=== PATIENT | female | born 1995 | race Hispanic/Latino ===

== ENCOUNTER 2019-05-08 15:33 | Emergency (ER) | payer OTHER ==
[2019-05-08 18:12] LABS: Urine Blood 2+ (NEG); Urine Glucose NEGATIVE (NEG); Urine Protein NEGATIVE (NEG)
[2019-05-08] MEDS ORDERED: AZITHROMYCIN 250 MG TAB ONE (18:32)
[2019-05-08] MEDS ORDERED: FLUCONAZOLE 100 MG TAB ONE (18:32)
[2019-05-08] MEDS ORDERED: CEFTRIAXONE 250 MG/VIAL ONE (18:33)
[2019-05-08] MEDS ORDERED: WATER FOR INJ,STERILE 10 ML ONE (18:33)
--- NOTE | 2019-05-08 18:46 | ER ---
Nurse's Notes [facility] Name: Charlee Christianson Age: 23 yrs Sex: Female : 1995 Arrival Date: 05/08/2019 Time: 15:38 Bed 16 Private MD: Diagnosis: Acute vaginitis Presentation: 05/08 15:44 Presenting complaint: Patient states: 2 days ago she started having vaginal itching, aj1 now it feels swollen and it hurts when she sits, and she is having a "clumpy white" discharge. Transition of care: patient was not received from another setting of care. Onset of symptoms was 2018. Risk Assessment: Do you want to hurt yourself or someone else? Patient reports no desire to harm self or others. Initial Sepsis Screen: Does the patient meet any 2 criteria? No. Patient's initial sepsis screen is negative. Does the patient have a suspected source of infection? No. Patient's initial sepsis screen is negative. Care prior to arrival: None. 15:44 Method Of Arrival: [facility] 15:44 Acuity: GARRY 5 aj1 Triage Assessment: 15:46 General: Appears in no apparent distress. comfortable, Behavior is calm, cooperative, aj1 appropriate for age. Pain: Pain currently is 7 out of 10 on a pain scale. Neuro: Level of Consciousness is awake, alert, obeys commands. Cardiovascular: Patient's skin is warm and dry. Respiratory: Airway is patent Respiratory effort is even, unlabored, Respiratory pattern is regular, symmetrical. 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 - Social history:: Smoking status: Patient/guardian denies using tobacco. - Ebola Screening: : Patient denies travel to an Ebola-affected area in the 21 days before illness onset. Screenin:28 Abuse screen: Denies threats or abuse. Nutritional screening: No deficits noted. tw2 Tuberculosis screening: No symptoms or risk factors identified. Fall Risk None identified. Assessment: 15:50 General: Appears in no apparent distress. obese, Behavior is calm, cooperative, tw2 appropriate for age. Pain:. Neuro: Level of Consciousness is awake, alert, obeys commands, Oriented to person, place, time, situation. Cardiovascular: Heart tones S1 S2 Patient's skin is warm and dry. Respiratory: Airway is patent Respiratory effort is even, unlabored, Respiratory pattern is regular, symmetrical, Breath sounds are clear bilaterally. GI: No signs and/or symptoms were reported involving the gastrointestinal system. Abdomen is round obese, Bowel sounds present X 4 quads. : Reports vaginal itching, vaginal discharge, whitish in color. EENT: No signs and/or symptoms were reported regarding the EENT system. Derm: No signs and/or symptoms reported regarding the dermatologic system. Musculoskeletal: Range of motion: intact in all extremities. 16:45 Reassessment: Patient appears in no apparent distress at this time. No changes from tw2 previously documented assessment. Patient and/or family updated on plan of care and expected duration. Pain level reassessed. Patient is alert, oriented x 3, equal unlabored respirations, skin warm/dry/pink. 18:16 Reassessment: Patient appears in no apparent distress at this time. No changes from tw2 previously documented assessment. Patient and/or family updated on plan of care and expected duration. Pain level reassessed. Patient is alert, oriented x 3, equal unlabored respirations, skin warm/dry/pink. 19:11 Reassessment: Patient appears in no apparent distress at this time. No changes from tw2 previously documented assessment. Patient and/or family updated on plan of care and expected duration. Pain level reassessed. Patient is alert, oriented x 3, equal unlabored respirations, skin warm/dry/pink. Vital Signs: 15:46 Pulse 78; Resp 18; Temp 97.0; Pulse Ox 100% on R/A; Weight 100.24 kg (R); Height 5 ft. aj1 2 in. (157.48 cm) (R); Pain 7/10; 15:46 BP 133 / 93; aj1 17:10 BP 116 / 70; Pulse 64; Resp 17; Pulse Ox 99% on R/A; tw2 18:16 BP 99 / 87; Pulse 63; Resp 17; Pulse Ox 100% on R/A; tw2 15:46 Body Mass Index 40.42 (100.24 kg, 157.48 cm) aj1 ED Course: 15:38 Patient arrived in ED. mr 15:46 Triage completed. aj1 15:47 Arm band placed on Patient placed in an exam room. aj1 15:47 Placed in gown. Bed in low position. Call light in reach. tw2 15:51 Shay Iqbal PA is PHCP. [facility] 15:51 George Chaudhary MD is Attending Physician. [facility] 16:28 Mimi Coats, RN is Primary Nurse. tw2 16:28 Assist provider with pelvic exam: Set up pelvic tray. Performed by Shay DEY tw2 Specimens sent to lab. Patient tolerated well. 19:11 Patient did not have IV access during this emergency room visit. tw2 Administered Medications: 18:38 Drug: Rocephin (cefTRIAXone) 250 mg Route: IM; Site: right deltoid; tw2 19:11 Follow up: Response: No adverse reaction tw2 18:38 Drug: Zithromax 1 grams Route: PO; tw2 19:11 Follow up: Response: No adverse reaction tw2 18:38 Drug: DiFLUcan 150 mg Route: PO; tw2 19:11 Follow up: Response: No adverse reaction tw2 Outcome: 18:45 Discharge ordered by . [facility] 19:11 Discharged to home ambulatory, with friend. tw2 19:11 Condition: stable 19:11 Discharge instructions given to patient, friend, Instructed on discharge instructions, follow up and referral plans. Demonstrated understanding of instructions, follow-up care. 19:12 Patient left the ED. tw2 Signatures: Dot Bennett RN RN aj Shay Iqbal PA PA jmm Rivera, Mary mr Mimi Coats RN RN tw2
--- NOTE | 2019-05-08 18:46 | EDPHYS ---
Physician Documentation [facility] Name: Charlee Christianson Age: 23 yrs Sex: Female : 1995 Arrival Date: 05/08/2019 Time: 15:38 Bed 16 Private MD: ED Physician George Chaudhary HPI: 05/08 16:03 This 23 yrs old Female presents to ER via Ambulatory with complaints of jmm Vaginal Pain. 16:03 The patient presents with vaginal discharge. Onset: The symptoms/episode began/occurred jmm gradually, 2 day(s) ago. Modifying factors: The symptoms are alleviated by nothing, the symptoms are aggravated by nothing. Associated signs and symptoms: Pertinent negatives: fever. This is a 23 year old female with no chronic medical conditions that presents to the ED with complaints of vaginal irritation beginning 2 days ago. Patient states she has cottage cheese like discharge. . 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 - Social history:: Smoking status: Patient/guardian denies using tobacco. - Ebola Screening: : Patient denies travel to an Ebola-affected area in the 21 days before illness onset. ROS: 16:03 Constitutional: Negative for fever, chills, and weight loss, Cardiovascular: Negative jmm for chest pain, palpitations, and edema, Respiratory: Negative for shortness of breath, cough, wheezing, and pleuritic chest pain. 16:03 : Positive for vaginal discharge, vaginal itching. 16:03 All other systems are negative. Exam: 16:03 Constitutional: This is a well developed, well nourished patient who is awake, alert, jmm and in no acute distress. Head/Face: atraumatic. Eyes: EOMI, no conjunctival erythema appreciated ENT: Moist Mucus Membranes Neck: Trachea midline, Supple Chest/axilla: Normal chest wall appearance and motion. Cardiovascular: Regular rate and rhythm. No edema appreciated Respiratory: Normal respirations, no respiratory distress appreciated Abdomen/GI: Non distended, soft Back: Normal ROM 16:03 Skin: General appearance color normal MS/ Extremity: Moves all extremities, no obvious deformities appreciated, no edema noted to the lower extremities Neuro: Awake and alert, normal gait Psych: Behavior is normal, Mood is normal, Patient is cooperative and pleasant 16:03 : Pelvic Exam: External exam: is normal, Speculum exam: discharge, white, the nurse was present for the exam. Vital Signs: 15:46 Pulse 78; Resp 18; Temp 97.0; Pulse Ox 100% on R/A; Weight 100.24 kg (R); Height 5 ft. aj1 2 in. (157.48 cm) (R); Pain 7/10; 15:46 BP 133 / 93; aj1 17:10 BP 116 / 70; Pulse 64; Resp 17; Pulse Ox 99% on R/A; tw2 18:16 BP 99 / 87; Pulse 63; Resp 17; Pulse Ox 100% on R/A; tw2 15:46 Body Mass Index 40.42 (100.24 kg, 157.48 cm) aj1 MDM: 16:03 Patient medically screened. [facility] 18:44 Data reviewed: vital signs, nurses notes. Counseling: I had a detailed discussion with marcin the patient and/or guardian regarding: the historical points, exam findings, and any diagnostic results supporting the discharge/admit diagnosis, the need for outpatient follow up, to return to the emergency department if symptoms worsen or persist or if there are any questions or concerns that arise at home. ED course: Patient advised to follow up with retanner and otherwise given strict return precautions Patient understood and agrees with the plan of care. . 05/08 16:44 Order name: Urine Dipstick--Ancillary (enter results); Complete Time: 18:19 05/08 16:44 Order name: Urine --Ancillary (enter results); Complete Time: 18:19 05/08 16:50 Order name: GC (Suleman/Chl) Probe CX/URE [facility] 05/08 16:50 Order name: Wet Prep; Complete Time: 18:10 [facility] 05/08 16:28 Order name: Urine Dipstick-Ancillary (obtain specimen); Complete Time: 16:41 [facility] 05/08 16:34 Order name: Urine Test (obtain specimen); Complete Time: 16:41 tw2 Administered Medications: 18:38 Drug: Rocephin (cefTRIAXone) 250 mg Route: IM; Site: right deltoid; tw2 19:11 Follow up: Response: No adverse reaction tw2 18:38 Drug: Zithromax 1 grams Route: PO; tw2 19:11 Follow up: Response: No adverse reaction tw2 18:38 Drug: DiFLUcan 150 mg Route: PO; tw2 19:11 Follow up: Response: No adverse reaction tw2 Disposition: 05/08/19 18:45 Discharged to Home. Impression: Acute vaginitis. - Condition is Stable. - Discharge Instructions: Vaginitis. - Medication Reconciliation Form, Thank You Letter, Antibiotic Education, Prescription Opioid Use, Work release form, Family Work Release form. - Follow up: Private Physician; When: 2 - 3 days; Reason: Recheck today's complaints, Continuance of care, Re-evaluation by your physician. Addendum: 05/10/2019 13:16 Co-signature as Attending Physician, George Chaudhary MD I agree with the assessment and c oconnell plan of care. Signatures: Dispatcher [employer] EDDot Burciaga, RN RN aj1 George Chaudhary MD MD cha Mickail, Joel, PA PA [facility] Mimi Coats RN RN tw2 Corrections: (The following items were deleted from the chart) 05/08 18:08 16:28 GC (Gonorr/Clamydia) Probe+R.LAB.BRZ ordered. EDMS EDMS 18:09 16:28 Wet Prep+BA.LAB.BRZ ordered. EDIL EDMS 19:12 18:45 05/08/2019 18:45 Discharged to Home. Impression: Acute vaginitis. Condition is tw2 Stable. Forms are Work release form, Family Work Release, Medication Reconciliation Form, Thank You Letter, Antibiotic Education, Prescription Opioid Use. Follow up: Private Physician; When: 2 - 3 days; Reason: Recheck today's complaints, Continuance of care, Re-evaluation by your physician. marcin
[2019-05-08 22:00] VITALS: TEMP 97
[2019-05-08 22:04] VITALS: BP 99/87; O2SAT 100
--- OUTSIDE RECORDS SUMMARY | 2019-05-11 05:32 | XMS REPORT ---
:1995 [facility] Address [address] [place] [address] [address] [place] [address] Care Team Providers Name Role Phone DR DENIS BARBER Unavailable Unavailable Problems This patient has no known problems. Allergies, Adverse Reactions, Alerts This patient has no known allergies or adverse reactions. Medications This patient has no known medications. Encounters Start End Encounter Admission Attending Care Care Encounter Date/Time Date/Time Type Type Clinicians Facility Department ID 2018-01-20 2018-01-20 Outpatient PASHA TAYLOR [facility] [id number] 10:37:00 11:15:00 DENIS
[2019-05-13 04:56] LABS: C.trachomatis RNA,TMA Not Detected (Not Detected)
== END 2019-05-08 19:12 | disposition home or self-care (01) ==
LOC: ER 15:33
DX: N76.0 Acute vaginitis (principal)
CPT/HCPCS: 81003; 81025; 87210; 87490; 87590; 96372; 99283; J0696

== ENCOUNTER 2021-01-27 15:03 | Emergency (ER) | payer OTHER, BC ==
--- OUTSIDE RECORDS SUMMARY | 2021-01-27 15:06 | XMS REPORT | Continuity of Care Document ---
:1995 Author Organization [facility] t Address [address] [place] [address] Care Team Providers Name Role Phone DR ELISABETH Attending Clinician Unavailable DR ELISABETH Admitting Clinician Unavailable Problems This patient has no known problems. Allergies, Adverse Reactions, Alerts This patient has no known allergies or adverse reactions. Medications This patient has no known medications. Procedures This patient has no known procedures. Encounters Start End Encounter Admission Attending Care Care Encounter Source Date/Time Date/Time Type Type Clinicians Facility Department ID 2018-01-20 2018-01-20 Outpatient PASHA TAYLOR [facility] [id number] 10:37:00 11:15:00 [facility] Results This patient has no known results.
[2021-01-27 17:32] LABS: Urine Blood Trace-intact (Negative); Urine Glucose Negative (Negative); Urine Protein Negative (Negative); Urine Specific Gravity 1.025 (1.005-1.030)
[2021-01-27] MEDS ORDERED: IBUPROFEN 400 MG TAB ONE (17:48)
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
[2021-01-27 18:24] LABS: Urine Specific Gravity/Preg 1.025 (1.005-1.030)
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
[2021-01-27 19:21] VITALS: BP 126/99; TEMP 99.3; O2SAT 99
== END 2021-01-27 19:11 | disposition home or self-care (01) ==
LOC: ER 15:03
DX: S29.011A Strain of muscle and tendon of front wall of thorax, initial encounter (principal); S30.1XXA Contusion of abdominal wall, initial encounter; F17.210 Nicotine dependence, cigarettes, uncomplicated; V89.2XXA Person injured in unspecified motor-vehicle accident, traffic, initial encounter
CPT/HCPCS: 71250; 72125; 74176; 81003; 81025; 99283

== ENCOUNTER 2021-04-02 15:26 | Emergency (ER) | payer BC, OTHER ==
--- NOTE | 2021-04-02 16:33 | RAD REPORT ---
EXAM DESCRIPTION: CT - Head Brain Wo Cont - 04/02/2021 4:18 pm CLINICAL HISTORY: HEADACHE COMPARISON: No comparisons TECHNIQUE: All CT scans are performed using dose optimization technique as appropriate and may inclu de automated exposure control or mA/KV adjustment according to patient size. FINDINGS: No intracranial hemorrhage, hydrocephalus or extra-axial fluid collection.No areas of brai n edema or evidence of midline shift. The paranasal sinuses and mastoids are clear. The calvarium is intact. IMPRESSION: No acute intracranial abnormality.
--- NOTE | 2021-04-02 16:35 | ER ---
Nurse's Notes [facility] Name: Charlee Christianson Age: 25 yrs Sex: Female : 1995 Arrival Date: 04/02/2021 Time: 15:35 Bed 12 Private MD: Diagnosis: Headache Presentation: 04/02 15:41 Chief complaint: Patient states: Hit head last night "in same spot where I previously ch5 had concussion". Stood up into a dry door that had mooved. Coronavirus screen: Vaccine status: Patient reports receiving the 2nd dose of the covid vaccine. Ebola Screen: Patient negative for fever greater than or equal to 101.5 degrees Fahrenheit, and additional compatible Ebola Virus Disease symptoms Patient denies exposure to infectious person. Patient denies travel to an Ebola-affected area in the 21 days before illness onset. Mechanism of Injury:. Mechanism of Injury: resulted from standing and hitting a door. Initial Sepsis Screen: Does the patient meet any 2 criteria? No. Patient's initial sepsis screen is negative. Does the patient have a suspected source of infection? No. Patient's initial sepsis screen is negative. Risk Assessment: Do you want to hurt yourself or someone else? Patient reports no desire to harm self or others. 15:41 Method Of Arrival: Ambulatory [facility] 16:36 Acuity: GARRY 3 iw Triage Assessment: 15:46 General: Appears in no apparent distress. Behavior is cooperative. Pain: Complains of ch5 pain in left parietal area and right parietal area. Neuro: No deficits noted. - Immunization history:: Adult Immunizations Client reports receiving the 2nd dose of the Covid vaccine. - Social history:: Smoking status: Patient reports the use of cigarette tobacco products. Screenin:48 Abuse screen: Denies threats or abuse. Denies injuries from another. Nutritional 5 screening: No deficits noted. Tuberculosis screening: No symptoms or risk factors identified. Fall Risk None identified. Assessment: 15:48 Reassessment: No changes from previously documented assessment. [facility] Vital Signs: 15:41 BP 148 / 97; Pulse 76; Resp 18; Temp 97.6; Pulse Ox 100% ; Weight 113.4 kg; Height 5 5 ft. 2 in. (157.48 cm); Pain 6/10; 15:41 Body Mass Index 45.73 (113.40 kg, 157.48 cm) ch5 [place] Coma Score: 15:41 Eye Response: spontaneous(4). Verbal Response: oriented(5). Motor Response: obeys ch5 commands(6). Total: 15. 15:58 Eye Response: spontaneous(4). Verbal Response: oriented(5). Motor Response: obeys kb commands(6). Total: 15. 15:58 Eye Response: spontaneous(4). Verbal Response: oriented(5). Motor Response: obeys kb commands(6). Total: 15. ED Course: 15:35 Patient arrived in ED. am2 15:43 Suzan Corral [facility]-C [facility] kb 15:43 George Chaudhary MD is Attending Physician. kb 15:48 Austin Isidro, RN is Primary Nurse. 5 15:48 Call light in reach. ch5 15:48 No provider procedures requiring assistance completed. ch5 16:18 CT Head Brain wo Cont In Process Unspecified. EDUT 16:37 Triage completed. iw 16:47 Patient did not have IV access during this emergency room visit. ch5 Administered Medications: No medications were administered Outcome: 16:34 Discharge ordered by MD. kb 16:47 Discharged to home ambulatory. ch5 16:47 Condition: stable 16:47 Discharge instructions given to patient, Instructed on discharge instructions. 16:53 Patient left the ED. 5 Signatures: Dispatcher [employer] EDUT Suzan Corral FNP-C FNP-Ckb Williams, Irene, RN RN Nena Hartman [facility] Austin Isidro, SAMARA PASCUAL [facility]
--- NOTE | 2021-04-02 16:35 | EDPHYS ---
Physician Documentation [facility] Name: Charlee Christianson Age: 25 yrs Sex: Female : 1995 Arrival Date: 04/02/2021 Time: 15:35 Bed 12 Private MD: ED Physician George Chaudhary HPI: 04/02 15:58 This 25 yrs old Female presents to ER via Ambulatory with complaints of Head kb Injury-Adult, Nausea. 15:58 The patient or guardian reports pain, tenderness. The complaints affect the top of kb head. Context of injury: The problem was sustained at laundry mat, resulted from a direct blow, a solid object. Onset: The symptoms/episode began/occurred yesterday. Associated signs and symptoms: Loss of consciousness: This patient did not experience any loss of consciousness. Pertinent positives: headache. Severity of symptoms: At their worst the symptoms were moderate, in the emergency department the symptoms are unchanged. The patient has not experienced similar symptoms in the past. The patient has not recently seen a physician. Pt reports she was bent over under the washer at the laundry mat and the door started closing so when she stood up she hit the top of her head on the bottom of the door. - Immunization history:: Adult Immunizations Client reports receiving the 2nd dose of the Covid vaccine. - Social history:: Smoking status: Patient reports the use of cigarette tobacco products. ROS: 15:57 Constitutional: Negative for fever, chills, and weight loss. kb 15:57 Neuro: Positive for headache. 15:57 All other systems are negative. Exam: 15:57 Constitutional: This is a well developed, well nourished patient who is awake, alert, kb and in no acute distress. Head/Face: Normocephalic, atraumatic. Eyes: Pupils equal round and reactive to light, extra-ocular motions intact. Lids and lashes normal. Conjunctiva and sclera are non-icteric and not injected. Cornea within normal limits. Periorbital areas with no swelling, redness, or edema. ENT: Moist Mucous membranes Respiratory: Respirations even and unlabored. No increased work of breathing, no retractions or nasal flaring. Skin: Warm, dry with normal turgor. Normal color. MS/ Extremity: Pulses equal, no cyanosis. Neurovascular intact. Full, normal range of motion. Neuro: Awake and alert, GCS 15, oriented to person, place, time, and situation. Moves all extremities. Normal gait. Psych: Awake, alert, with orientation to person, place and time. Behavior, mood, and affect are within normal limits. Vital Signs: 15:41 BP 148 / 97; Pulse 76; Resp 18; Temp 97.6; Pulse Ox 100% ; Weight 113.4 kg; Height 5 ch5 ft. 2 in. (157.48 cm); Pain 6/10; 15:41 Body Mass Index 45.73 (113.40 kg, 157.48 cm) ch5 [place] Coma Score: 15:41 Eye Response: spontaneous(4). Verbal Response: oriented(5). Motor Response: obeys ch5 commands(6). Total: 15. 15:58 Eye Response: spontaneous(4). Verbal Response: oriented(5). Motor Response: obeys kb commands(6). Total: 15. 15:58 Eye Response: spontaneous(4). Verbal Response: oriented(5). Motor Response: obeys kb commands(6). Total: 15. MDM: 15:43 Patient medically screened. kb 15:58 Data reviewed: vital signs, nurses notes. Data interpreted: Pulse oximetry: on room air kb is 100 %. Interpretation: normal. 16:34 Counseling: I had a detailed discussion with the patient and/or guardian regarding: the kb historical points, exam findings, and any diagnostic results supporting the discharge/admit diagnosis, radiology results, the need for outpatient follow up, a family practitioner, to return to the emergency department if symptoms worsen or persist or if there are any questions or concerns that arise at home. 04/02 15:43 Order name: CT Head Brain wo Cont; Complete Time: 16:34 kb Administered Medications: No medications were administered Disposition: 04/03 06:39 Co-signature as Attending Physician, George Chaudhary MD I agree with the assessment and delvin plan of care. Disposition Summary: 04/02/21 16:34 Discharge Ordered Location: Home kb Condition: Stable kb Diagnosis - Headache kb Followup: kb - With: Emergency Department - When: As needed - Reason: Worsening of condition Followup: kb - With: Private Physician - When: 2 - 3 days - Reason: Recheck today's complaints, Continuance of care, Re-evaluation by your physician Discharge Instructions: - Discharge Summary Sheet kb - Head Injury, Adult, [id number] kb Forms: - Medication Reconciliation Form kb - Thank You Letter kb - Antibiotic Education kb - Prescription Opioid Use kb - Work release form ch5 Signatures: Dispatcher [employer] EDSuzan Medrano, PERLITA HALL-George Camacho MD MD cha Heath, Christopher, RN RN 5 Corrections: (The following items were deleted from the chart) 04/02 15:58 15:57 Constitutional: This is a well developed, well nourished patient who is awake, kb alert, and in no acute distress. Head/Face: Normocephalic, atraumatic. Eyes: Pupils equal round and reactive to light, extra-ocular motions intact. Lids and lashes normal. Conjunctiva and sclera are non-icteric and not injected. Cornea within normal limits. Periorbital areas with no swelling, redness, or edema. Respiratory: Respirations even and unlabored. No increased work of breathing, no retractions or nasal flaring. Skin: Warm, dry with normal turgor. Normal color. MS/ Extremity: Pulses equal, no cyanosis. Neurovascular intact. Full, normal range of motion. Neuro: Awake and alert, GCS 15, oriented to person, place, time, and situation. Moves all extremities. Normal gait. Psych: Awake, alert, with orientation to person, place and time. Behavior, mood, and affect are within normal limits. kb
[2021-04-02 17:01] VITALS: BP 148/97; TEMP 97.6; O2SAT 100
== END 2021-04-02 16:53 | disposition home or self-care (01) ==
LOC: ER 15:26
DX: R51.9 Headache, unspecified (principal); W22.8XXA Striking against or struck by other objects, initial encounter; Y93.89 Activity, other specified; Y92.89 Other specified places as the place of occurrence of the external cause
CPT/HCPCS: 70450; 99283

== ENCOUNTER 2021-08-23 10:24 | Emergency (ER) | payer BC, OTHER ==
--- OUTSIDE RECORDS SUMMARY | 2021-08-23 10:33 | XMS REPORT | Continuity of Care Document ---
:1995 Author Organization [facility] t Address [address] [place] [address] Care Team Providers Name Role Phone Vinod Sanchez MD Primary Care Physician AMINAH Attending Clinician Unavailable Only, Db Test Attending Clinician Unavailable Unknown Attending Clinician Unavailable Doctor Unassigned, Name Attending Clinician Unavailable MYKELSEYONLINE Attending Clinician Unavailable LAB90 Attending Clinician Unavailable Vinod Sanchez MD Attending Clinician DR ELISABETH Attending Clinician Unavailable DR ELISABETH Admitting Clinician Unavailable Payers Payer Name Policy Type Policy Number Effective Date Expiration Date [id number] 2021 00:00:00 OUT OF STATE [facility] 2 [id number] 2021 00:00:00 Problems Condition Condition Condition Status Onset Resolution Last Treating Co mments Source Name Details Category Date Date Treatment Clinician Date No known No known Disease Kelse y active active Seybold problems problems Allergies, Adverse Reactions, Alerts Allergy Allergy Status Severity Reaction(s) Onset Inactive Treating Comm ents Source Name Type Date Date Clinician NO KNOWN Drug Active [facility] Class [facility] Social History Social Habit Start Date Stop Date Quantity Comments Source Exposure to Yes [facility] SARS-CoV-2 (event) Medica l Branch Sex Assigned At [birth year] Reena Abebe ybold 00:00:00 00:00:00 Sex Assigned At [birth year] [facility] 00:00:00 00:00:00 Medical Branch Smoking Status Start Date Stop Date Source Unknown if ever smoked [facility] Never smoked tobacco Reena gomez Medications Ordered Filled Start Stop Current Ordering Indication Dosage Frequency Signature Comments Components Source Medication Medication Date Date Medication? Clinician (SIG) Name Name Testosteron Yes 2.3mg Inject 2.3 Reena e Cypionate 9-30 mg into Seybo ld (DEPO-TESTO 00:00: the muscle STERONE) 00 once a 200 MG/ML week intramuscul ar Solution Vital Signs Vital Name Observation Time Observation Value Comments Source Systolic blood pressure 2021-05-15 20:02:00 126 mm[Hg] Reena Seybold Diastolic blood 2021-05-15 20:02:00 84 mm[Hg] Kelse y Seybold pressure Heart rate 2021-05-15 20:02:00 76 /min Reena martinezbold Body temperature 2021-05-15 20:02:00 36.61 Marcia Rachael ey Seybold Respiratory rate 2021-05-15 20:02:00 14 /min Rachael ey Seybold Body height 2021-05-15 20:02:00 157.5 cm Reena martinezbodudley Body weight 2021-05-15 20:02:00 113.399 kg Reena S juanbold BMI 2021-05-15 20:02:00 45.73 kg/m2 Reena Gladys juanbodudley Procedures Procedure Date / Time Performed Performing Clinician [facility] ASSIGNMENT OF BENEFITS 2021-07-10 18:58:41 Doctor Unassigned, No [facility] Encounters Start End Encounter Admission Attending Care Care Encounter Source Date/Time Date/Time Type Type Clinicians Facility Department ID 2021-07-10 2021-07-10 Outpatient Rell BURR [facility] [id number] Univers 13:30:00 14:30:13 JOHN loyd [facility] 2021-07-10 2021-07-10 Laboratory Only, Ang Db Test [facility] 1.2.8 [id number] Univers 13:30:00 13:45:00 Only Unknown, Attending HEALTH [id number] ity of [place] [id number] Javier as BOUCHRA?BLEA [id number] Me annamarie JUAN [address] [place] [address] [facility] 2021-07-10 2021-07-10 Outpatient R [facility] [id number] Univers 13:30:00 13:30:00 [id number] ity of [facility] 2021-07-10 2021-07-10 Orders Doctor CLARK [id number] [place] [address] 00:00:00 00:00:00 Only Unassigned, JAZMYN [id number] ity of [place] [facility] [id number] Javier as [id number] [address] 2021-05-16 2021-05-16 Outpatient STEVIE CHAMBERS [id number] Reena 00:00:00 00:00:00 MD Savana NEWSOME 2021-05-15 2021-05-15 Outpatient LAB90 REENA CHAMBERS [id number] Reena 14:45:00 14:45:00 Savana [place]field 2021-05-15 2021-05-15 Office Rocael Sanchez [id number] Reena 13:43:44 14:13:44 Visit Vero Corral [id number] Se antonella Brock [id number] 2018-01-20 2018-01-20 Outpatient PASHA TAYLOR [facility] [id number] 10:37:00 11:15:00 [facility] Results This patient has no known results.
[2021-08-23 11:34] LABS: Absolute Lymphocytes (CBC) 1.1 K/uL (0.7-4.9); Hematocrit 45.4 % (36.0-45.0); MPV 7.5 fL (7.6-11.3)
[2021-08-23] MEDS ORDERED: NA CHLORIDE 0.9% 1,000 ML ONE (11:59)
[2021-08-23 12:05] LABS: ALT/SGPT 31 U/L (12-78); AST/SGOT 16 U/L (15-37); Albumin 3.3 g/dL (3.4-5.0); Alkaline Phosphatase 62 U/L (45-117); BUN Blood Urea Nitrogen 13 mg/dL (7-18); Bicarbonate 26 mmol/L (21-32); Bilirubin Total 0.4 mg/dL (0.2-1.0); Glucose Level 84 mg/dL (74-106); Lipase 150 U/L (73-393); Potassium 3.8 mmol/L (3.5-5.1); Protein, Total 7.4 g/dL (6.4-8.2); Sodium Level 139 mmol/L (136-145)
[2021-08-23 12:06] LABS: Bilirubin Direct < 0.1 mg/dL (0-0.2)
[2021-08-23 12:33] LABS: Urine Blood 1+ (Negative); Urine Glucose Negative (Negative); Urine Protein 1+ (Negative); Urine Specific Gravity >=1.030 (1.005-1.030); Urine pH 5.5 (5.0-7.0)
[2021-08-23 12:42] LABS: Urine Bacteria 20-50 /HPF (<20); Urine Mucus LIGHT /HPF (NONE SEEN); Urine RBC <5 /HPF (NONE SEEN)
[2021-08-23 13:09] LABS: SARS-COV-2 RT PCR NEGATIVE (NEGATIVE)
[2021-08-23 13:10] LABS: Urine Specific Gravity/Preg >1.030 (1.005-1.030)
--- NOTE | 2021-08-23 13:41 | EDPHYS ---
Physician Documentation [facility] Name: Charlee Christianson Age: 25 yrs Sex: Female : 1995 Arrival Date: 08/23/2021 Time: 10:27 Bed 10 Private MD: ED Physician Cecille Zamorano HPI: 08/23 16:49 This 25 yrs old Female presents to ER via Ambulatory with complaints of kb bodyaches, Fever, Constipation, tongue problem. 16:49 Pt reports fever, abd pain, bodyaches, malaise and nausea. States she developed a black kb tongue today so she was concerned. Pt has been taking pepto bismol. 16:50 The patient presents with abdominal pain that is diffuse. Onset: The symptoms/episode kb began/occurred 3 day(s) ago. The symptoms do not radiate. Associated signs and symptoms: Pertinent positives: fever, nausea. The symptoms are described as constant. Modifying factors: The symptoms are alleviated by nothing, the symptoms are aggravated by nothing. Severity of pain: At its worst the pain was mild in the emergency department the pain is unchanged. The patient has not experienced similar symptoms in the past. The patient has not recently seen a physician. 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 - Social history:: Smoking status: Patient reports the use of cigarette tobacco products, denies chronic smoking, but will smoke occasionally. ROS: 16:48 Respiratory: Negative for shortness of breath, cough, wheezing, and pleuritic chest kb pain. 16:48 Constitutional: Positive for body aches, fever, malaise. 16:48 Abdomen/GI: Positive for abdominal pain, nausea, Negative for vomiting, diarrhea. 16:48 All other systems are negative. Exam: 16:48 Constitutional: This is a well developed, well nourished patient who is awake, alert, kb and in no acute distress. Head/Face: Normocephalic, atraumatic. ENT: Moist Mucous membranes Cardiovascular: Regular rate and rhythm with a normal S1 and S2. No gallops, murmurs, or rubs. No pulse deficits. Respiratory: Respirations even and unlabored. No increased work of breathing. Talking in full sentences Abdomen/GI: Soft, non-tender. No distention Skin: Warm, dry with normal turgor. Normal color. MS/ Extremity: Pulses equal, no cyanosis. Neurovascular intact. Full, normal range of motion. Neuro: Awake and alert, GCS 15, oriented to person, place, time, and situation. Moves all extremities. Normal gait. Psych: Awake, alert, with orientation to person, place and time. Behavior, mood, and affect are within normal limits. Vital Signs: 10:32 BP 147 / 97; Pulse 103; Resp 18; Temp 98.4; Pulse Ox 99% ; Weight 113.4 kg; Height 5 ap3 ft. 3 in. (160.02 cm); Pain 6/10; 12:30 BP 143 / 95; Pulse 100; Resp 18; Pulse Ox 100% on R/A; Pain 0/10; ld1 10:32 Body Mass Index 44.29 (113.40 kg, 160.02 cm) ap3 MDM: 10:41 Patient medically screened. kb 13:40 Data reviewed: vital signs, nurses notes. Data interpreted: Pulse oximetry: on room air kb is 100 %. Interpretation: normal. Counseling: I had a detailed discussion with the patient and/or guardian regarding: the historical points, exam findings, and any diagnostic results supporting the discharge/admit diagnosis, lab results, the need for outpatient follow up, a family practitioner, to return to the emergency department if symptoms worsen or persist or if there are any questions or concerns that arise at home. 08/23 10:39 Order name: COVID-19/FLU A+B (Document "Date of Onset" if Symptomatic); Complete Time: ap3 13:21 08/23 11:05 Order name: Urine Microscopic Only kb 08/23 11:05 Order name: Strep kb 08/23 11:06 Order name: Basic Metabolic Panel; Complete Time: 12:07 kb 08/23 11:06 Order name: CBC with Diff; Complete Time: 11:42 kb 08/23 11:06 Order name: Hepatic Function; Complete Time: 12:07 kb 08/23 11:06 Order name: Lipase; Complete Time: 12:07 kb 08/23 11:06 Order name: Urine Microscopic Only; Complete Time: 12:43 EDMS 08/23 11:06 Order name: Group A Streptococcus Rapid Sc; Complete Time: 12:19 EDIL 08/23 12:20 Order name: Throat Culture EDIL 08/23 12:33 Order name: Urine Dipstick-Ancillary; Complete Time: 12:35 EDMS 08/23 12:43 Order name: Urine Culture EDIL 08/23 12:54 Order name: Urine --Ancillary (enter results); Complete Time: 13:21 bd 08/23 11:05 Order name: Urine Dipstick-Ancillary (obtain specimen); Complete Time: 12:33 kb 08/23 11:06 Order name: IV Saline Lock; Complete Time: 11:27 kb 08/23 11:06 Order name: Labs collected and sent; Complete Time: 11:27 kb Administered Medications: 11:58 Drug: NS 0.9% 1000 ml Route: IV; Rate: 1000 ml; Site: left antecubital; ld1 Disposition Summary: 08/23/21 13:40 Discharge Ordered Location: Home kb Condition: Stable kb Diagnosis - UTI/ Urinary tract infection, site not specified kb - Volume depletion, unspecified kb Followup: kb - With: Emergency Department - When: As needed - Reason: Worsening of condition Followup: kb - With: Private Physician - When: 2 - 3 days - Reason: Recheck today's complaints, Continuance of care, Re-evaluation by your physician Discharge Instructions: - Discharge Summary Sheet kb - Urinary Tract Infection, Adult, [id number] kb Forms: - Medication Reconciliation Form kb - Thank You Letter kb - Antibiotic Education kb - Prescription Opioid Use kb - Work release form ld1 Prescriptions: - Macrobid 100 mg Oral Capsule - take 1 capsule by ORAL route every 12 hours for 10 days; 20 capsule; Refills: kb 0, Product Selection Permitted Signatures: Dispatcher [employer] Suzan Hernandez FNP-C FNP-Ckb Prokisch, Amanda RN RN ap3 Tammie Troy RN RN ld1
--- NOTE | 2021-08-23 13:41 | ER ---
Nurse's Notes [facility] Name: Charlee Christianson Age: 25 yrs Sex: Female : 1995 Arrival Date: 08/23/2021 Time: 10:27 Bed 10 Private MD: Diagnosis: UTI/ Urinary tract infection, site not specified;Volume depletion, unspecified Presentation: 08/23 10:32 Chief complaint: Patient states: they began having body aches, fevers, abdominal pain ap3 on Saturday08/20/2021. Patient then reports noticing their tongue was "black" when brushing their teeth this morning. Patient also reports having fevers of 101 the last couple of days which responded well to medications. Coronavirus screen: chills, fatigue, fever, headache, muscle pain, nausea, Client presents with at least one sign or symptom that may indicate coronavirus-19. Standard/surgical mask placed on the client. Provider contacted for isolation considerations. Ebola Screen: No symptoms or risks identified at this time. Initial Sepsis Screen: Does the patient meet any 2 criteria? No. Patient's initial sepsis screen is negative. Does the patient have a suspected source of infection? No. Patient's initial sepsis screen is negative. Risk Assessment: Do you want to hurt yourself or someone else? Patient reports no desire to harm self or others. Onset of symptoms was August 19, 2021. 10:32 Method Of Arrival: Ambulatory ap3 10:32 Acuity: GARRY 4 ap3 Triage Assessment: 10:36 General: Appears in no apparent distress. Behavior is calm, cooperative, appropriate ap3 for age. Pain: Complains of pain in generalized body aches. Neuro: Level of Consciousness is awake, alert, obeys commands, Oriented to person, place, time, situation, Appropriate for age Moves all extremities. Gait is steady, Speech is normal. Cardiovascular: Patient's skin is warm and dry. Respiratory: Airway is patent Respiratory effort is even, unlabored. GI: Reports indigestion, nausea. 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 - Social history:: Smoking status: Patient reports the use of cigarette tobacco products, denies chronic smoking, but will smoke occasionally. Screenin:37 Abuse screen: Denies threats or abuse. Nutritional screening: No deficits noted. ap3 Tuberculosis screening: No symptoms or risk factors identified. 10:38 Fall Risk None identified. No fall in past 12 months (0 pts). ap3 Assessment: 10:38 GI: Bowel sounds present X 4 quads. Abd is soft and non tender. ap3 12:30 General: Appears in no apparent distress. comfortable, Behavior is calm, cooperative, ld1 appropriate for age. Pain: Denies pain. Neuro: Level of Consciousness is awake, alert, obeys commands, Oriented to person, place, time, situation, Appropriate for age. Cardiovascular: Capillary refill < 3 seconds Patient's skin is warm and dry. Respiratory: Airway is patent Respiratory effort is even, unlabored. GI: Abdomen is flat, non-distended. : No signs and/or symptoms were reported regarding the genitourinary system. EENT: No signs and/or symptoms were reported regarding the EENT system. Derm: Reports body aches. Musculoskeletal: No signs and/or symptoms reported regarding the musculoskeletal system. Vital Signs: 10:32 BP 147 / 97; Pulse 103; Resp 18; Temp 98.4; Pulse Ox 99% ; Weight 113.4 kg; Height 5 ap3 ft. 3 in. (160.02 cm); Pain 6/10; 12:30 BP 143 / 95; Pulse 100; Resp 18; Pulse Ox 100% on R/A; Pain 0/10; ld1 10:32 Body Mass Index 44.29 (113.40 kg, 160.02 cm) ap3 ED Course: 10:27 Patient arrived in ED. am2 10:31 [facility] Corral [facility]-C [facility] kb 10:31 Cecille Zamorano MD is Attending Physician. kb 10:35 Triage completed. ap3 10:37 Arm band placed on left wrist. ap3 10:38 Patient has correct armband on for positive identification. Call light in reach. Adult ap3 w/ patient. Pulse ox on. NIBP on. Door closed. Noise minimized. 11:27 Initial lab(s) drawn, by me, sent to lab. Strep swab sent to lab. Inserted saline lock: em1 20 gauge in left antecubital area, using aseptic technique. Blood collected. Missed attempt(s): 20 gauge in left forearm. Bleeding controlled, band aid applied, catheter tip intact. 11:55 Tammie Troy, RN is Primary Nurse. ld1 12:30 No provider procedures requiring assistance completed. ld1 12:33 Urine Microscopic Only Sent. ld1 12:33 Urine Microscopic Only Sent. ld1 12:33 COVID-19/FLU A+B (Document "Date of Onset" if Symptomatic) Sent. ld1 13:49 IV discontinued, intact, bleeding controlled, No redness/swelling at site. ld1 Administered Medications: 11:58 Drug: NS 0.9% 1000 ml Route: IV; Rate: 1000 ml; Site: left antecubital; ld1 Outcome: 13:40 Discharge ordered by MD. kb 13:49 Discharged to home ambulatory, with family. ld1 13:49 Condition: stable 13:49 Discharge instructions given to patient, Instructed on discharge instructions, follow up and referral plans. medication usage, Demonstrated understanding of instructions, follow-up care, medications, Prescriptions given X 1. 13:49 Patient left the ED. ld1 Signatures: Suzan Corral, ISABEL-C SCRAP YARD WORKER-Ivan Haro em1 Nena Hartman am2 Nena Head, RN RN ap3 Tammie Troy, RN RN ld1
[2021-08-23 15:16] VITALS: TEMP 98.4
[2021-08-23 15:18] VITALS: BP 143/95; O2SAT 100
== END 2021-08-23 13:49 | disposition home or self-care (01) ==
LOC: ER 10:24
DX: N39.0 Urinary tract infection, site not specified (principal); E86.9 Volume depletion, unspecified; F17.210 Nicotine dependence, cigarettes, uncomplicated; Z20.822 Contact with and (suspected) exposure to COVID-19
CPT/HCPCS: 87070; 87088; 85025; 87086; 80048; 36415; 81025; 80076; 87081; 83690; 0240U; 99284; J7030; 81003; 81015

== ENCOUNTER 2022-03-19 15:03 | Emergency (ER) | payer BC, OTHER ==
--- OUTSIDE RECORDS SUMMARY | 2022-03-19 15:06 | XMS REPORT | Continuity of Care Document ---
:1995 Author Organization [facility] t Address [address] [place] [address] Care Team Providers Name Role Phone PCP, PATIENT DOES NOT HAVE A Primary Care Physician Unavaila JOHN Klein Attending Clinician Unavailable Only, Ang Db Test Attending Clinician Unavailable Unknown, Attending Attending Clinician Unavailable Doctor Unassigned, [place] Attending Clinician Unavailable MD CANDIE Attending Clinician Unavailable LAB90 Attending Clinician Unavailable Daniel LOPES, Vero Brock Attending Clinician [phone] DENIS BARBER Attending Clinician Unavailable DR DENIS BARBER Admitting Clinician Unavailable Payers Payer Name Policy Type Policy Number Effective Date Expiration Date S [facility] - [id number] 2021 00:00:00 OUT OF STATE [facility] 2 [id number] 2021 00:00:00 Problems Condition Condition Condition Status Onset Resolution Last Treating Co mments Source Name Details Category Date Date Treatment Clinician Date No known No known Disease Kelse y active active Seybold problems problems Allergies, Adverse Reactions, Alerts Allergy Allergy Status Severity Reaction(s) Onset Inactive Treating Comm ents Source Name Type Date Date Clinician NO KNOWN Drug Active Univers ALLERGIE Class ity [facility] Social History Social Habit Start Date Stop Date Quantity Comments Source Exposure to Yes [facility] SARS-CoV-2 (event) Medica l Branch Sex Assigned At [birth year] [facility] 00:00:00 00:00:00 [facility] Smoking Status Start Date Stop Date Source Unknown if ever smoked [facility] Never smoked tobacco Reena Gallagher old Medications Ordered Filled Start Stop Current Ordering Indication Dosage Frequency Signature Comments Components Source Medication Medication Date Date Medication? Clinician (SIG) Name Name Trinidad Yes 2.3mg Inject 2.3 Reena e Cypionate 9-30 mg into Seybo ld (DEPO-TESTO 00:00: the muscle STERONE) 00 once a 200 MG/ML week intramuscul ar Solution Vital Signs Vital Name Observation Time Observation Value Comments Source Systolic blood pressure 2021-05-15 20:02:00 126 mm[Hg] Reena Seybold Diastolic blood 2021-05-15 20:02:00 84 mm[Hg] Kel y Seybold pressure Heart rate 2021-05-15 20:02:00 76 /min Reena martinezbold Body temperature 2021-05-15 20:02:00 36.61 Marcia Rachael ey Seybold Respiratory rate 2021-05-15 20:02:00 14 /min Rachael ey Seybold Body height 2021-05-15 20:02:00 157.5 cm Reena martinezbold Body weight 2021-05-15 20:02:00 113.399 kg Reena martinezbold BMI 2021-05-15 20:02:00 45.73 kg/m2 Reena martinezbodudley Procedures Procedure Date / Time Performed Performing Clinician [facility] e ASSIGNMENT OF BENEFITS 2021-07-10 18:58:41 Doctor Unassigned, No [facility] Encounters Start End Encounter Admission Attending Care Care Encounter Source Date/Time Date/Time Type Type Clinicians Facility Department ID 2021-07-10 2021-07-10 Outpatient R AMINAH [facility] [id number] Univers 13:30:00 14:30:13 JOHN loyd [facility] 2021-07-10 2021-07-10 Laboratory Only, Ang Db Test [facility] 1.2.8 [id number] Univers 13:30:00 13:45:00 Only Unknown, Attending HEALTH [id number] itmicaela [facility] [id number] Javier as BOUCHRA?BLEA [phone] Me annamarie GODFREY [address] [place] [address] MEDICAL OFFICE BUILDING 2021-07-10 2021-07-10 Outpatient R [facility] [id number] Univers 13:30:00 13:30:00 [id number] ity of [facility] 2021-07-10 2021-07-10 Orders Doctor AMBER [id number] Univers 00:00:00 00:00:00 Only Unassigned, JAZMYN [id number] ity of [facility] [id number] Javier as [id number] [address] 2021-05-16 2021-05-16 Outpatient STEVIE CHAMBERS [id number] Reena 00:00:00 00:00:00 MD Savana ENWSOME 2021-05-15 2021-05-15 Outpatient LAB90 REENA CHAMBERS [id number] Reena 14:45:00 14:45:00 Savana [place] 2021-05-15 2021-05-15 Office Rocael Sanchez [id number] Reena 13:43:44 14:13:44 Visit Vero Corral [id number] Se antonella Brock [id number] 2018-01-20 2018-01-20 Outpatient PASHA TAYLOR [facility] [id number] 10:37:00 [facility] Results This patient has no known results.
[2022-03-19 15:53] LABS: Urine Blood Trace-intact (Negative); Urine Glucose Negative (Negative); Urine Protein Negative (Negative); Urine Specific Gravity 1.025 (1.005-1.030)
--- NOTE | 2022-03-19 16:08 | EDPHYS ---
Physician Documentation [facility] Name: Charlee Christiansno Age: 26 yrs Sex: Female : 1995 Arrival Date: 03/19/2022 Time: 15:09 Bed Treatment Private MD: ED Physician Deanna Lambert HPI: 03/19 23:03 This 26 yrs old Female presents to ER via Ambulatory with complaints of Groin kb Pain, Discharge. 23:03 The patient presents with Noticed white discharge to vaginal area today. Onset: The kb symptoms/episode began/occurred today. Modifying factors: The symptoms are alleviated by nothing, the symptoms are aggravated by nothing. Associated signs and symptoms: The patient has no apparent associated signs or symptoms. Severity of symptoms: At their worst the symptoms were very mild, in the emergency department the symptoms are unchanged. The patient has not experienced similar symptoms in the past. The patient has not recently seen a physician. 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 - Social history:: Smoking status: Patient reports the use of cigarette tobacco products. ROS: 23:01 Constitutional: Negative for fever, chills, and weight loss. kb 23:01 : Positive for white discharge to genital area. 23:01 All other systems are negative. Exam: 23:01 Constitutional: This is a well developed, well nourished patient who is awake, alert, kb and in no acute distress. Head/Face: Normocephalic, atraumatic. ENT: Moist Mucous membranes Respiratory: Respirations even and unlabored. No increased work of breathing. Talking in full sentences Abdomen/GI: Soft, non-tender. No distention Skin: Warm, dry with normal turgor. Normal color. MS/ Extremity: Pulses equal, no cyanosis. Neurovascular intact. Full, normal range of motion. Neuro: Awake and alert, GCS 15, oriented to person, place, time, and situation. Moves all extremities. Normal gait. Psych: Awake, alert, with orientation to person, place and time. Behavior, mood, and affect are within normal limits. 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 Vital Signs: 15:21 BP 155 / 93; Pulse 78; Resp 18; Temp 98.2; Pulse Ox 100% on R/A; Weight 127.01 kg; ph Height 5 ft. 2 in. (157.48 cm); 15:21 Body Mass Index 51.21 (127.01 kg, 157.48 cm) ph MDM: 15:24 Patient medically screened. kb 23:03 Data reviewed: vital signs, nurses notes. Data interpreted: Pulse oximetry: on room air kb is 100 %. Interpretation: normal. Counseling: I had a detailed discussion with the patient and/or guardian regarding: the historical points, exam findings, and any diagnostic results supporting the discharge/admit diagnosis, radiology results, the need for outpatient follow up, an OB/Gyne specialist, to return to the emergency department if symptoms worsen or persist or if there are any questions or concerns that arise at home. 03/19 15:53 Order name: Urine Microscopic Only; Complete Time: 16:24 kb 03/19 15:53 Order name: Urine Dipstick-Ancillary; Complete Time: 16:07 EDMS 03/19 15:52 Order name: Urine Dipstick-Ancillary (obtain specimen); Complete Time: 16:00 kb 03/19 15:56 Order name: Urine --Ancillary (enter results); Complete Time: 16:24 bd Administered Medications: 16:36 Drug: DiFLUcan (fluconazole) 150 mg Route: PO; ap3 16:36 Follow up: Response: No adverse reaction ap3 Disposition: 03/20 07:33 STAFF ATTESTATION STATEMENT: I was immediately available onsite in the emergency sd2 department for consultation in the care of this patient. I did not see or examine this patient. Deanna Lambert MD. Disposition Summary: 03/19/22 16:07 Discharge Ordered Location: Home kb Condition: Stable kb Diagnosis - Candidiasis of vulva and vagina kb Followup: kb - With: Emergency Department - When: As needed - Reason: Worsening of condition Followup: kb - With: Private Physician - When: 2 - 3 days - Reason: Recheck today's complaints, Continuance of care, Re-evaluation by your physician Discharge Instructions: - Discharge Summary Sheet kb - Vaginal Yeast Infection, Adult kb Forms: - Medication Reconciliation Form kb - Thank You Letter kb - Antibiotic Education kb - Prescription Opioid Use kb Prescriptions: - Diflucan 150 mg Oral Tablet - take 1 tablet by ORAL route one time for 1 day; 1 tablet; Refills: 0, Product kb Selection Permitted Signatures: Dispatcher [employer] EDSuzan Medrano, Angela Saenz RN RN Nena Head RN RN ap3 Dunlop, Stephanie, MD MD sd2
--- NOTE | 2022-03-19 16:08 | ER ---
Nurse's Notes [facility] Name: Charlee Christianson Age: 26 yrs Sex: Female : 1995 Arrival Date: 03/19/2022 Time: 15:09 Bed Treatment Private MD: Diagnosis: Candidiasis of vulva and vagina Presentation: 03/19 15:21 Chief complaint: Patient states: " I am transitioning from female to male and taking ph testosterone My "privates" are starting to grow and I noticed today that there was some white stuff around it and it was painful." Denies fever or abdominal pain. Coronavirus screen: Vaccine status: Patient reports receiving the 2nd dose of the covid vaccine. Ebola Screen: No symptoms or risks identified at this time. Initial Sepsis Screen: Does the patient meet any 2 criteria? No. Patient's initial sepsis screen is negative. Does the patient have a suspected source of infection? No. Patient's initial sepsis screen is negative. Risk Assessment: Do you want to hurt yourself or someone else? Patient reports no desire to harm self or others. Onset of symptoms was March 19, 2022. 15:21 Method Of Arrival: Ambulatory ph 15:21 Acuity: GARRY 3 ph 15:21 Acuity: GARRY 4 ph Triage Assessment: 16:10 General: Appears in no apparent distress. Behavior is calm, cooperative, appropriate ph for age. Pain: Complains of pain in pelvis. Neuro: Level of Consciousness is awake, alert, obeys commands, Oriented to person, place, time, situation. Respiratory: Airway is patent Respiratory effort is even, unlabored. Derm: Skin is intact, is healthy with good turgor, Skin is pink, warm \\T\\ dry. Musculoskeletal: Circulation, motion, and sensation intact. Range of motion: intact in all extremities. 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 - Social history:: Smoking status: Patient reports the use of cigarette tobacco products. Screenin:09 Abuse screen: Denies threats or abuse. Denies injuries from another. Nutritional ph screening: No deficits noted. Tuberculosis screening: No symptoms or risk factors identified. Fall Risk None identified. Assessment: 16:11 General: SEE TRIAGE ASSESSMENT. ph Vital Signs: 15:21 BP 155 / 93; Pulse 78; Resp 18; Temp 98.2; Pulse Ox 100% on R/A; Weight 127.01 kg; ph Height 5 ft. 2 in. (157.48 cm); 15:21 Body Mass Index 51.21 (127.01 kg, 157.48 cm) ph ED Course: 15:09 Patient arrived in ED. rg4 15:24 Suzan Corral [facility]-C [facility] kb 15:24 Deanna Lambert MD is Attending Physician. kb 15:30 Triage completed. ph 15:30 Arm band placed on Patient placed in waiting room, Patient notified of wait time. ph 16:09 Angela Melton, RN is Primary Nurse. ph 16:09 Patient has correct armband on for positive identification. Placed in gown. Bed in low ph position. Call light in reach. Pulse ox on. NIBP on. 16:36 No provider procedures requiring assistance completed. Patient did not have IV access ap3 during this emergency room visit. Administered Medications: 16:36 Drug: DiFLUcan (fluconazole) 150 mg Route: PO; ap3 16:36 Follow up: Response: No adverse reaction ap3 Medication: 16:10 VIS not applicable for this client. ph Outcome: 16:07 Discharge ordered by . kb 16:36 Discharged to home ambulatory, with friend. ap3 16:36 Condition: good 16:36 Discharge instructions given to patient, friend, Instructed on discharge instructions, follow up and referral plans. medication usage, Demonstrated understanding of instructions, follow-up care, medications, Prescriptions given X 1. 16:36 Patient left the ED. ap3 Signatures: Suzan Corral FNP-C FNP-Ckb Hall, Patricia, RN RN Mariah Bentley rg4 Nena Head RN RN ap3
[2022-03-19 16:12] LABS: Urine Mucus Slight /HPF (None Seen); Urine RBC <5 /HPF (None Seen)
[2022-03-19 16:23] LABS: Urine Specific Gravity/Preg 1.025 (1.005-1.030)
[2022-03-19] MEDS ORDERED: FLUCONAZOLE 100 MG TAB ONE (16:35)
[2022-03-20 20:57] VITALS: BP 155/93; TEMP 98.2; O2SAT 100
== END 2022-03-19 16:36 | disposition home or self-care (01) ==
LOC: ER 15:03
DX: B37.3 Candidiasis of vulva and vagina (principal); Z72.0 Tobacco use
CPT/HCPCS: 81003; 81015; 81025; 99283

== ENCOUNTER 2024-02-23 18:11 | Emergency (ER) | payer SELFPAY ==
--- OUTSIDE RECORDS SUMMARY | 2024-02-23 18:13 | XMS REPORT | Continuity of Care Document ---
Author Name Unknown Address [address] [facility] [address] [place] [address] [facility]connect Address [address] [facility] [place] [address] Care Team Providers Care Supervisor Asbestos Removal Name Role Phone PCP, PATIENT DOES NOT HAVE A Primary Care Physic melia Unavailable JOHN BURR Attending Clinician Unavailable Only, Ang Db Test Attending Clinician Unavailabl e Unknown, Attending Attending Clinician Unavailab le Doctor Unassigned, [place] Attending Clinician U mirian SCHREIBER MD Attending Clinician Unavailab le LAB90 Attending Clinician Unavailable Daniel LOPES, Vero Brock Attending Clinician [phone] DR DENIS BARBER Attending Clinician Unavailable DR DENIS BARBER Admitting Clinician Unavailable Payers Payer Name Policy Type Policy Number Effective Date Expirati on Date Source [facility] - OUT OF STATE [id number] 2021 00:00:00 BCBS 2 [id number] 2021 00:00:00 Problems Condition Name Condition Details Condition Category Status Onset Date Resolution Date Last Treatment Date Treating Clinician Comments Source No known active problems No known active problems Disease Reena Keating Allergies, Adverse Reactions, Alerts Allergy Name Allergy Type Status Severity Reaction(s) Onset Date Inactive Date Treating Clinician Comments Source NO KNOWN ALLERGIE S Drug Class Active Univers [facility] Social History Social Habit Start Date Stop Date Quantity Comments Source Exposure to SARS-CoV-2 (event) Yes [facility] Sex Assigned At 1995 00:00:00 1995 00:00:00 [facility] Smoking Status Start Date Stop Date Source Unknown if ever smoked Unive [facility] Never smoked tobacco Reena Keatign Medications Ordered Medication Name Filled Medication Name Start Date Stop Date Current Medication? Ordering Clinician Indication Dosage Frequency Signature (SIG) Comments Components Source Testosteron e Cypionate (DEPO-TESTO STERONE) 200 MG/ML intramuscul ar Solution 03-30 00:00: 00 Yes 2.3mg Inject 2.3 mg into the muscle once a week Reena Keating Vital Signs Vital Name Observation Time Observation Value Comments S ource Systolic blood pressure 2021-05-15 20:02:00 126 mm[Hg] Reena Seybold Diastolic blood pressure 2021-05-15 20:02:00 84 mm[Hg] Reena Gallaghero ld Heart rate 2021-05-15 20:02:00 76 /min Kel y ybpatricia Body temperature 2021-05-15 20:02:00 36.61 Marcia Reena Seybold Respiratory rate 2021-05-15 20:02:00 14 /min Reena Keating Body height 2021-05-15 20:02:00 157.5 cm Rachael ey ybold Body weight 2021-05-15 20:02:00 113.399 kg Rachael ey ybold BMI 2021-05-15 20:02:00 45.73 kg/m2 Rachael juan Abebeybpatricia Procedures Procedure Date / Time Performed Performing Clinicia n Source ASSIGNMENT OF BENEFITS 2021-07-10 18:58:41 Docto r Unassigned, [place] [facility] Encounters Start Date/Time End Date/Time Encounter Type Admission Type Attending Clinicians Care Facility Care Department Encounter ID Source 2021-07-10 13:30:00 2021-07-10 14:30:13 Outpatient R [facility] [id number] [facility] 2021-07-10 13:30:00 2021-07-10 13:45:00 Laboratory Only Only, Ang Db Test Unknown, Attending [facility] MEIR SHOOK[facility] [id number] [facility] 2021-07-10 13:30:00 2021-07-10 13:30:[address] [facility] [id number] [facility] 2021-07-10 00:00:00 2021-07-10 00:00:00 Orders Only Doctor Unassigned, [place] [facility] 1..840.114 [id number] [facility] 2021-05-16 00:00:00 2021-05-16 00:00:00 Outpatient MD REENA SPENCE [id number] Reena Keating 2021-05-15 14:45:00 2021-05-15 14:45:00 Outpatient LAB90 [facility]EENA CHAMBERS [id number] [facility] 2021-05-15 13:43:44 2021-05-15 14:13:44 Office Visit Vero Sanchez [place] .2.840.114 [id number] Reena Keating 2018-01-20 10:37:00 2018-01-20 11:15:00 Outpatient DENIS [facility]OR [facility] [id number] [facility]
--- NOTE | 2024-02-23 18:45 | EDPHYS ---
Physician Documentation [facility] Name: Charlee Christianson Age: 28 yrs Sex: Female : 1995 Arrival Date: 02/23/2024 Time: 18:11 Bed IW7 Private MD: ED Physician Deanna Lambert HPI: 02/22 18:47 This 28 yrs old Female presents to ER via Ambulatory with complaints of cry kb and itchy eyes. 18:51 This 28 yrs old Female presents to ER via Ambulatory with complaints of cry kb and itchy eyes. 18:51 Pt is a 28 year old female who presents for redness, swelling and itching to bilateral kb upper eyelids that started 2 days ago. States she has been here for this in the past but couldn't remember what meds she was told to take. States the treatment she got last time made symptoms resolve. . Historical: - Allergies: 18:46 No Known Allergies; aa5 - Home Meds: 18:46 None [Active]; aa5 - PMHx: 18:46 None; aa5 - PSHx: 18:46 None; aa5 - Immunization history:: Adult Immunizations unknown. - Infectious Disease History:: Denies. - Social history:: Smoking status: Patient denies any tobacco usage or history of. ROS: 18:42 Constitutional: As per HPI kb Exam: 18:46 Constitutional: This is a well developed, well nourished patient who is awake, alert, kb and in no acute distress. Head/Face: Normocephalic, atraumatic. ENT: Moist Mucous membranes Cardiovascular: Regular rate Respiratory: Respirations even and unlabored. No increased work of breathing. Talking in full sentences Skin: Warm, dry with normal turgor. Normal color. MS/ Extremity: Pulses equal, no cyanosis. Neurovascular intact. Full, normal range of motion. Neuro: Awake and alert, GCS 15, oriented to person, place, time, and situation. Moves all extremities. Normal gait. 18:46 Eyes: Lids and lashes: edema, bilaterally, erythema, seen bilaterally, Vital Signs: 18:44 BP 179 / 103; Pulse 83; Resp 18 S; Temp 98.5(TE); Pulse Ox 100% on R/A; Weight 111.13 aa5 kg (R); Height 5 ft. 2 in. (R); 18:55 BP 159 / 89; Pulse 80; Resp 16 S; Pulse Ox 99% on R/A; aa5 18:44 Body Mass Index 44.81 (111.13 kg, 157.48 cm) aa5 MDM: 18:15 Patient medically screened. kb 18:45 Differential diagnosis: dermatitis, stye, local infection. Data reviewed: vital signs, kb nurses notes. Counseling: I had a detailed discussion with the patient and/or guardian regarding the historical points, exam findings, and any diagnostic results supporting the discharge/admit diagnosis, the need for outpatient follow up, an opthalmologist, to return to the emergency department if symptoms worsen or persist or if there are any questions or concerns that arise at home. Special discussion: I have referred the patient to see his PCP for further evaluation of high blood pressure. 18:46 ED course: erythema and swelling to bilateral upper eyelids. kb Administered Medications: 18:55 Drug: Dexamethasone IM 10 mg IM once Route: IM; Site: right deltoid; aa5 19:05 Follow up: Response: No adverse reaction; Medication administered at discharge. aa5 18:55 Drug: Famotidine PO 20 mg PO once Route: PO; aa5 19:05 Follow up: Response: No adverse reaction aa5 Disposition Summary: 02/23/24 18:45 Discharge Ordered Notes: Location: Home kb Condition: Stable kb Diagnosis - Allergic dermatitis of right upper eyelid kb - Allergic dermatitis of left upper eyelid kb Followup: kb - With: Emergency Department - When: As needed - Reason: Worsening of condition Followup: kb - With: Private Physician - When: 2 - 3 days - Reason: Recheck today's complaints, Continuance of care, Re-evaluation by your physician Discharge Instructions: - Discharge Summary Sheet kb - Contact Dermatitis kb Forms: - Medication Reconciliation Form kb - Antibiotic Education kb - Prescription Opioid Use kb - Patient Portal Instructions kb - Leadership Thank You Letter kb Prescriptions: - Pepcid 20 mg Oral Tablet - take 1 tablet ORAL route every 12 hours for 5 days; 10 tablet; Refills: 0, kb Product Selection Permitted Signatures: Suzan Corral, PERLITA HALL-Glenda Kiser RN RN aa5 Corrections: (The following items were deleted from the chart) 18:53 18:51 Pt is a 28 year old female who presents for redness, swelling and itching to kb bilateral upper eyelids that started. kb
--- NOTE | 2024-02-23 18:45 | ER ---
Nurse's Notes [facility] Name: Charlee Christianson Age: 28 yrs Sex: Female : 1995 Arrival Date: 02/23/2024 Time: 18:11 Bed IW7 Private MD: Diagnosis: Allergic dermatitis of right upper eyelid;Allergic dermatitis of left upper eyelid Presentation: 02/22 18:44 Chief complaint: Patient states: eyelid swelling and redness that is reoccurring. aa5 Coronavirus screen: At this time, the client does not indicate any symptoms associated with coronavirus-19. Ebola Screen: Patient denies travel to an Ebola-affected area in the 21 days before illness onset. Initial Sepsis Screen: Does the patient meet any 2 criteria? No. Patient's initial sepsis screen is negative. Does the patient have a suspected source of infection? No. Patient's initial sepsis screen is negative. Risk Assessment: Do you want to hurt yourself or someone else? Patient reports no desire to harm self or others. Onset of symptoms was February 23, 2024. 18:44 Acuity: GARRY 5 aa5 18:44 Method Of Arrival: Ambulatory aa5 Historical: - Allergies: 18:46 No Known Allergies; aa5 - Home Meds: 18:46 None [Active]; aa5 - PMHx: 18:46 None; aa5 - PSHx: 18:46 None; aa5 - Immunization history:: Adult Immunizations unknown. - Infectious Disease History:: Denies. - Social history:: Smoking status: Patient denies any tobacco usage or history of. Assessment: 18:55 Reassessment: Patient is alert, oriented x 3, equal unlabored respirations, skin aa5 warm/dry/pink. Vital Signs: 18:44 BP 179 / 103; Pulse 83; Resp 18 S; Temp 98.5(TE); Pulse Ox 100% on R/A; Weight 111.13 aa5 kg (R); Height 5 ft. 2 in. (R); 18:55 BP 159 / 89; Pulse 80; Resp 16 S; Pulse Ox 99% on R/A; aa5 18:44 Body Mass Index 44.81 (111.13 kg, 157.48 cm) aa5 ED Course: 18:13 Patient arrived in ED. ra3 18:15 Suzan Corral FNP-C is [facility]. kb 18:15 Deanna Lambert MD is Attending Physician. kb 18:44 Arm band placed on. aa5 18:45 Triage completed. aa5 18:55 No provider procedures requiring assistance completed. Patient did not have IV access aa5 during this emergency room visit. Administered Medications: 18:55 Drug: Dexamethasone IM 10 mg IM once Route: IM; Site: right deltoid; aa5 19:05 Follow up: Response: No adverse reaction; Medication administered at discharge. aa5 18:55 Drug: Famotidine PO 20 mg PO once Route: PO; aa5 19:05 Follow up: Response: No adverse reaction aa5 Outcome: 18:45 Discharge ordered by . kb 19:06 Discharged to home ambulatory, with significant other, aa5 19:06 Condition: stable 19:06 Discharge instructions given to patient, Instructed on discharge instructions, follow up and referral plans. medication usage, Demonstrated understanding of instructions, follow-up care, medications, Prescriptions given X 1, 19:07 Patient left the ED. aa5 Signatures: Suzan Corral FNP-C FNP-Glenda Kiser, RN RN aa5 Michelle Chavez 3
[2024-02-23] MEDS ORDERED: dexAMETHasone 10 MG/ML VIAL ONE (18:51)
[2024-02-23] MEDS ORDERED: FAMOTIDINE 20 MG TAB ONE (18:51)
[2024-02-23 19:11] VITALS: BP 179/103; TEMP 98.5; O2SAT 100
== END 2024-02-23 19:07 | disposition home or self-care (01) ==
LOC: ER 18:11
DX: L23.9 Allergic contact dermatitis, unspecified cause (principal)
CPT/HCPCS: 96372; 99284; J1100